=== PATIENT | male | born 1960 | race African-American/Black ===

== ENCOUNTER 2017-09-16 21:27 | Emergency (ER) | payer MEDICARE, MEDICAID ==
[~2017-09-16] VITALS: Ht 190.5 cm; Wt 108.9 kg
[~2017-09-16 21:27] MED LIST: AMBIEN10 MG ORAL; ASPIRIN500 MG ORAL; ATORVASTATIN CA10 MG ORAL; AVAPRO300 MG ORAL; EXFORGE 10-1601 EACH ORAL; HYDROCHLOROTHIA25 MG ORAL; LEVEMIR100 UNIT/1 SUBQ; LEVOFLOXACIN500 MG ORAL; METFORMIN HCL1000 M1 ORAL; NORVASC10 MG ORAL; PERCOCET 10-321 EACH ORAL; PERCOCET 5-3251 EACH ORAL; TYLENOL650 MG/20. ORAL; VANCOMYCIN HCL750 MG IV; VITAMIN C500 M1 ORAL; ZINC SULFATE220 M1 ORAL; ZOSYN 3.373.375 GM/1 IVPB
[2017-09-16 21:30] VITALS: BP 230/112
--- NOTE | 2017-09-16 21:37 | Emergency Room Report ---
History of Present Illness General Chief Complaint: Headache Source: Patient Present Illness HPI 57-year-old male, history of hypertension and diabetes, presenting with an episode of right-sided neck pain. Patient states he was watching TV, suddenly had a spasmodic shooting pain from his neck down to his shoulder on the right side. With some numbness of his right hand. And some "fluttering" in his right head. Patient states that this episode lasted less than a half a minute and then resolved spontaneously. Patient states that this has never happened to him before. Denies any current headache, blurry vision, neck pain, nausea vomiting, numbness or tingling of his extremities. He denies any symptoms at this time Allergies: Coded Allergies: No Known Allergies (Unverified , 04/13/14) Patient History Past Medical History: see triage record Past Surgical History: none Pertinent Family History: none Reviewed Nursing Documentation: PMH: Agreed, PSxH: Agreed Nursing Documentation-PMH Past Medical History: No History, Except For Hx Cardiac Problems: Yes Hx Hypertension: Yes Hx Diabetes: Yes - dm 2 Hx Cancer: No Hx Gastrointestinal Problems: No Hx Neurological Problems: No Review of Systems All Other Systems: negative except mentioned in HPI Physical Exam Vital Signs Date Time Temp Pulse Resp B/P (MAP) Pulse Ox O2 Delivery O2 Flow Rate FiO2 09/16/17 21:19 98.4 61 16 230/112 98 Room Air Sp02 EP Interpretation: reviewed, normal General Appearance: normal inspection, well appearing, no apparent distress, alert, GCS 15, non-toxic Head: normocephalic, atraumatic Eyes: bilateral eye normal inspection, bilateral eye PERRL, bilateral eye EOMI ENT: normal ENT inspection, normal pharynx, normal voice, moist mucus membranes Neck: normal inspection, full range of motion, supple, no meningismus, no bony tend, other - nontender neck throughout, full range of motion Respiratory: normal inspection, lungs clear, normal breath sounds, no respiratory distress, no retraction, no wheezing, speaking full sentences, chest symmetrical Cardiovascular #1: normal inspection, regular rate, rhythm, no edema, normal capillary refill Cardiovascular #2: 2+ radial (R), 2+ radial (L) Gastrointestinal: normal inspection, non tender, soft, non-distended, no guarding Musculoskeletal: normal inspection, back normal, normal range of motion, non- tender Neurologic: normal inspection, alert, oriented x3, responsive, conservation planner III-XII nml as tested, motor strength/tone normal, sensory intact, normal gait, speech normal Psychiatric: normal inspection, judgement/insight normal, memory normal Skin: normal inspection, normal color, no rash, warm/dry, well hydrated, normal turgor Medical Decision Making Diagnostic Impression: Primary Impression: Neck muscle spasm ER Course 57-year-old male, with 1/2 a second of right-sided neck and shoulder pain, now asymptomatic DDX: episode of neck spasm/torticollis no red flag symptoms currently. pt asymptomatic. no neurological signs Plan: Observe ER course: Patient has remained stable during ED stay. found to be hypertensive, however asymptomatic. also anxious, ativan given has been conversing on phone, NAD, will dc home Disposition: Patient is to be discharged to home. Patient is instructed to follow up with their primary care doctor within 5 days. Instructed to be compliant with his BP meds Strict return precautions discussed with patient such as worsening/severe pain, chest pain, SOB, numbness or weakness, headache, which may indicate severe illness. Patient verbalizes understanding and agrees with plan. Please note that this Emergency Department Report was dictated using [employer] teacher technology software, occasionally this can lead to erroneous entry secondary to interpretation by the dictation equipment Rhythm Strip EP Interpretation: Yes Rate: 65 Rhythm: NSR, no PVCs, no ectopy Last Vital Signs Date Time Temp Pulse Resp B/P (MAP) Pulse Ox O2 Delivery O2 Flow Rate FiO2 09/16/17 21:19 98.4 61 16 230/112 98 Room Air Disposition: HOME, SELF-CARE Condition: Improved Patient Instructions: Muscle Cramps and Spasms, [id number] Benigno Ledezma M.D. Sep 16, 2017 21:37
[2017-09-16] MEDS ORDERED: LORazepam 1mg tab ORAL ONE (21:45)
[2017-09-16 22:35] VITALS: BP_SYST 204; BP_SYST 230; BP_DIAS 109; BP_DIAS 112
== END 2017-09-16 22:40 | disposition home or self-care (01) ==
LOC: EDBD 21:27 → EMR 21:35
DX: M62.838 Other muscle spasm (principal); I10 Essential (primary) hypertension; E11.9 Type 2 diabetes mellitus without complications
CPT/HCPCS: 99283